=== PATIENT | female | born 1980 | race American Indian/Alaskan Native ===

== ENCOUNTER 2016-05-25 09:57 | Emergency (ER) | payer MEDICAID ==
[2016-05-25 10:12] VITALS: BP 123/83
[2016-05-25] MEDS ORDERED: NORCO 5/325 PO ONE (11:32)
--- NOTE | 2016-05-25 11:58 | Emergency Department Report ---
ED General Adult HPI - General Chief complaint: Skin Rash Stated complaint: POSS SHINGLES Time Seen by Provider: 05/25/16 11:25 Source: patient, family Mode of arrival: Ambulatory Limitations: No Limitations - History of Present Illness Initial comments: PT brought in by family for rash to back that started on Sat. PT's family states that they noticed the rash to her right side yesterday. They looked up shingles and they think she has it. PT has not been complaining of pain but is c /o itching. MD Complaint: rash Onset/Timin -: Gradual, days(s) Location: chest, back Severity scale (0 -10): 0 Quality: other (itching ) Consistency: constant Associated Symptoms: denies: chest pain, fever/chills, nausea/vomiting Treatments Prior to Arrival: other (calamine lotion ) - Related Data Previous Rx's Medication Instructions Recorded Last Taken Type Acetaminophen/Codeine [Tylenol #3] 1 tab PO Q6H PRN #12 tab 05/25/16 Unknown Rx Valacyclovir HCl [Valtrex] 1,000 mg PO TID #21 tablet 05/25/16 Unknown Rx hydrOXYzine PAMOATE [Vistaril] 25 mg PO Q6HR PRN #12 capsule 05/25/16 Unknown Rx Allergies Allergy/AdvReac Type Severity Reaction Status Date / Time No Known Allergies Allergy Unverified 05/25/16 10:12 ED Review of Systems ROS: Stated complaint: POSS SHINGLES Other details as noted in HPI Comment: All other systems reviewed and negative Cardiovascular: denies: chest pain Gastrointestinal: denies: abdominal pain Musculoskeletal: denies: back pain Skin: rash ED Past Medical Hx - Past Medical History Hx Psychiatric Treatment: Yes Additional medical history: hx of Chicken Pox - Surgical History Past Surgical History?: No - Social History Smoking Status: Never Smoker Substance Use Type: None - Medications Home Medications: Home Medications Medication Instructions Recorded Confirmed Last Taken Type Acetaminophen/Codeine [Tylenol #3] 1 tab PO Q6H PRN #12 tab 05/25/16 Unknown Rx Valacyclovir HCl [Valtrex] 1,000 mg PO TID #21 tablet 05/25/16 Unknown Rx hydrOXYzine PAMOATE [Vistaril] 25 mg PO Q6HR PRN #12 capsule 05/25/16 Unknown Rx ED Physical Exam - General Limitations: No Limitations General appearance: alert, in no apparent distress - Head Head exam: Present: atraumatic, normocephalic - Eye Eye exam: Present: normal appearance. Absent: conjunctival injection - ENT ENT exam: Present: normal exam, normal external ear exam - Neck Neck exam: Present: normal inspection, full ROM. Absent: lymphadenopathy - Respiratory Respiratory exam: Present: normal lung sounds bilaterally. Absent: respiratory distress - Cardiovascular Cardiovascular Exam: Present: normal rhythm, tachycardia - GI/Abdominal GI/Abdominal exam: Present: soft. Absent: tenderness - Extremities Exam Extremities exam: Present: normal inspection, full ROM - Back Exam Back exam: Present: full ROM, other (vesicular rash noted to R side of back). Absent: tenderness - Neurological Exam Neurological exam: Present: alert - Psychiatric Psychiatric exam: Present: flat affect - Skin Skin exam: Present: warm, dry, vesicles (To R side of back and R flank) ED Course Vital Signs 05/25/16 05/25/16 05/25/16 10:06 11:44 12:16 Temperature 98.9 F Pulse Rate 123 H 110 H Respiratory 20 20 Rate Blood Pressure 123/83 O2 Sat by Pulse 97 Oximetry - Reevaluation(s) Reevaluation #1: 05/25/16 11:57 PT and pt's family aware of abnormal PE findings and dx. Reevaluation #2: 05/25/16 12:19 PT's heart rate improved after analgesic was given. ED Medical Decision Making - Differential Diagnosis shingles Critical care attestation.: If time is entered above; I have spent that time in minutes in the direct care of this critically ill patient, excluding procedure time. ED Disposition Clinical Impression: Shingles Qualifiers: Herpes zoster complications: without complications Qualified Code(s): B02.9 - Zoster without complications Disposition: DISCHARGED TO HOME OR SELFCARE Is pt being admited?: No Does the pt Need Aspirin: No Condition: Stable Instructions: Herpes Zoster (ED) Additional Instructions: You can give Rachaun the vistaril for itching. However, do not give with the Tylenol #3 as these can both be sedating medications. Rachaun is contagious and should avoid children under one year of age, women, and the elderly Prescriptions: Acetaminophen/Codeine [Tylenol #3] 1 tab PO Q6H PRN #12 tab PRN Reason: Pain , Severe (7-10) hydrOXYzine PAMOATE [Vistaril] 25 mg PO Q6HR PRN #12 capsule PRN Reason: Itching Valacyclovir HCl [Valtrex] 1,000 mg PO TID #21 tablet Referrals: PRIMARY CARE, [Primary Care Provider] - 3-5 Days MARIO BEST MD [Staff Physician] - 3-5 Days Time of Disposition: 12:00
== END 2016-05-25 12:44 | disposition home or self-care (01) ==
LOC: ED 09:57
DX: B02.9 Zoster without complications (principal)
CPT/HCPCS: 99282